=== PATIENT | male | born 1970 | race Caucasian/White ===

== ENCOUNTER 2025-01-29 19:58 | Emergency (ER) | payer MEDICAID ==
[~2025-01-29] VITALS: Ht 172.7 cm; Wt 82.0 kg
[2025-01-29 20:06] VITALS: O2SAT 100
[2025-01-29] MEDS ORDERED: FLUORESCEIN SODIUM 1MG/STRIP BOTHEYE ONE (20:30)
[2025-01-29] MEDS ORDERED: TETRACAINE 0.5% OPHTH DROPS 4ML BOTHEYE ONE (20:30)
[2025-01-29] MEDS ORDERED: OCUFLX RIGHTEYE (22:25)
[2025-01-29 22:53] VITALS: BP 168/106; PULSE 73; RESP 18; TEMP 37.3; O2SAT 98
== END 2025-01-29 22:58 | disposition home or self-care (01) ==
LOC: ER 19:58
DX: T15.81XA Foreign body in other and multiple parts of external eye, right eye, initial encounter (principal); I10 Essential (primary) hypertension; W44.9XXA Unspecified foreign body entering into or through a natural orifice, initial encounter; Y93.89 Activity, other specified; Y92.89 Other specified places as the place of occurrence of the external cause; Y99.8 Other external cause status
CPT/HCPCS: 65222; 70480; 99284